=== PATIENT | female | born 1980 | race Caucasian/White ===

== ENCOUNTER → 2020-06-15 14:11 | Outpatient (CLI) | payer OTHER, SELFPAY ==
--- NOTE | ~2020-06-15 | US_ITS ---
EXAMINATION: US venous doppler LE RT DATE: 06/15/2020 14:41 INDICATION: Right calf pain. TECHNIQUE: Grayscale ultrasound images without and with compression and Doppler ultrasound images of the right lower extremity veins were obtained. COMPARISON: None. FINDINGS: The visualized portions of right common femoral vein, profunda (deep) femoral vein, femoral vein, pop liteal vein, peroneal veins, posterior tibial veins, and greater saphenous vein outflow are patent. IMPRESSION: 1. No deep venous thrombosis. Reviewed, dictated and finalized at location A. FACTURING PROJECT MANAGER
== END ==
PROVIDERS: PCP Nurse Practitioner Adult Health; Visit Provider Nurse Practitioner Adult Health
DX: M79.661 Pain in right lower leg (principal)
CPT/HCPCS: 93971

== ENCOUNTER 2024-11-22 17:21 | Emergency (ER) | payer OTHER, SELFPAY ==
--- NOTE | ~2024-11-22 | XR_ITS ---
EXAMINATION: XR chest 2V Exam Date/Time: 11/22/2024 17:34 CDT HISTORY: CP Comparison: None. RESULT: Lines, tubes, and devices: None. Lungs and pleura: Apical pleural scarring, otherwise clear. Cardiomediastinal silhouette: Stable. Other: No acute osseous or upper abdominal finding. IMPRESSION: No acute cardiopulmonary process. Reviewed, dictated and finalized at location K.
--- OUTSIDE RECORDS SUMMARY | 2024-11-22 17:23 | XMS_ITS | Data Portability ---
Author Organization [facility] [place] Address [address] [place] [address] Assessment Encounter Date Assessment Date Assessment LastModified by Organization Details LastModified Time 08/19/2024 08/19/2024 Annual gynecological exam performed. Patient will come back in a year unless there are new symptoms. [email or web address] Not available 08/19/2024 13:57:49 Plan of Treatment Reminders Order Date Submit Date Provider Last Modified By Organization Details Last Modified Time Details Appointments None recorded. Lab hormone panel, serum or plasma [address] [facility], [address], [place], [address], 5 07:36:57 pap, IG + HR HPV - HPV regardless but if HPV is positive need subtyping 16,18/45 2024 025 [facility] (Lab), [address], [place], [address], 5 17:00:17 Referral None recorded. Procedures None recorded. Surgeries None recorded. Imaging None recorded. Medication Orders doxycycline monohydrate 100 mg capsule 2024 025 [id number], [address], [place], [place], [id number], 17:28:37 Patient TargetsNo targets recorded. Patient InstructionsNo instructions recorded. Reason for Referral None Reported. Results Created Date Observation Date Name Description Value Unit Range Abnormal Flag Note LastModifiedBy Organization Detail LastModifiedTime 08/20/19 25 08/19/2024 IMAGE GUIDE D PAP AND HPV REGAR DLESS image guided Pap, HPV regardless of Pap result SEE RESULT S BELOW CASE REPOR T: Cytol ogy Gynec ologi adriel Repor t Case: [id number] Aut[employer] ruddy muniz Provi rivera: Dermo dy, Katiana , ANP, SUPERVISOR [employer]IN[employer] FABRICATION Colle cted: 08/19 1403 Order ing Locat ion: [place] Patho logy Recei tuan: 08/20 0853 First Scree n: Rosio Latif ret, CT Rescr een: James Melo, CT Speci men: Ene correa Pap - Image d, Cervi x STATE MENT OF ADEQU ACY: Satis facto ry for evalu ation Trans forma tion zone compo nent prese nt ----- ----- ----- ----- ----- ----- ----- ----- ----- ----- ----- ----- ----- ----- ----- ----- ----- ---- FINAL DIAGN OSIS: Negat lola for Intra epith elial Delmy way or Jennifer chandler ([facility]) . Elect alfreda mccullough farzana d by James Melo, CT on 2024 at 1556 CDT ----- ----- ----- ----- ----- ----- ----- ----- ----- ----- ----- ----- ----- ----- ----- ----- ----- ---- HPV RESUL TS: HPV mRNA E6/E7 : No HPV mRNA Detec inocente NOTE: This high risk HPV mRNA assay detec ts fourt een high- risk HPV types (16, 18, 31, 33, 35, 39, 45, 51, 52, 56, 58, 59, 66, 68) witho ut diffe renti ation . COMME NT: This speci men was revie wed by a Cytot echno logis t and/o r Patho logis t (as indic ated in this repor t) after evalu ation using the Thinp rep Imagi ng Syste m. CLINI ADRIEL INFOR MATIO N: Menst rual Statu s: LMP (if appli cable ): Clini adriel Histo ry/Pr eviou s Pap: Type of Neopl caridad (if appli cable ): Signi fican t Clini adriel Findi ngs: Other Histo ry: Hormo husam (if appli cable ): PAP EDUCA RACHEL L NOTE: The Pap Test is a scree madeline test with an inher ent false negat lola rate. Liqui d-bas ed sampl ing may decre ase, but will not elimi queenie, false negat lola resul ts. A negat lola resul t does not precl ude the prese nce and/o r devel opmen t of disea se, since the prese nce of abnor mal cells in the sampl e depen ds on the locat ion of the lesio n and sampl ing techn ique. Caty nued regul ar scree madeline is the best metho d of cance r preve ntion . If repor inocente cytol ogic findi ng do not corre late with physi adriel and/o r histo rical findi ngs, furth er inves tigat ion is recom demarco d, as clini vashti mosley nted. Not Available [facility] (Lab) [address], [place], [address], 08/23/2024 17:00:17 10/07/19 25 10/06/2024 FSH, LH, ESTRA DIOL estradiol 108.0 pg/mL This assay was perfo rmed using [employer] ratio n reage nts and test kits. Value s obtai cassidy with other assay metho ds or kits canno t be used inter mobley eably . Femal e Estra diol Range s: Folli cular phase 12.4- 233 pg/mL Ovula tion phase 41.0- 398 pg/mL Lutea l phase 22.3- 341 pg/mL Postm enopa usal <5-13 8 pg/mL Healt hy Pregn ant Women 1st Trime ster 154-3 243 pg/mL 2nd Trime ster 1561- 43825 pg/mL 3rd Trime ster 8525- >3000 0 pg/mL Not Available [facility] (Lab) [address], [place], [address], 10/07/2024 07:36:57 10/07/19 25 10/06/2024 FSH, LH, ESTRA DIOL FSH 4.8 mIU/m L This assay was perfo rmed using [employer] n reage nts and test kits. Value s obtai cassidy with other assay metho ds or kits canno t be used inter mobley eably . Femal es Folli cular : 3.5-1 2.5 mIU/m L Ovula tion: 4.7-2 1.5 mIU/m L Lutea l: 1.7-7 .7 mIU/m L Postm enopa use: 25.8- 134.8 mIU/m L Not Available [facility] (Lab) [address], [place], [address], 10/07/2024 07:36:57 10/07/1910/06/2024 FSH, LH, ESTRA DIOL LH 11.5 mIU/m L This assay was perfo rmed using [employer] n reage nts and test kits. Value s obtai cassidy with other assay metho ds or kits canno t be used inter mobley eably . Femal es Mid-F ollic ular: 2.4-1 2.6 mIU/m L Mid-C ycle: 14.0- 95.6 mIU/m L Mid-L uteal : 1.0-1 1.4 mIU/m L Postm enopa use: 7.7-5 8.5 mIU/m L Not Available [facility] (Lab) [address] [place], [address], 10/07/2024 07:36:57 10/07/1910/06/2024 [facility], CHAYO bacterial vaginosis (bv), tma Negati ve negati ve This test detec ts ribos omal RNA from bacte china assoc iated with bacte rial vagin osis (BV), inclu ding Lacto bacil tomer (L. gasse ri, L. crisp atus and L. jense ishaan), Gardn erell a vagin miriam, and Atopo bium vagin ae by Trans cript ion-M ediat ed Ampli ficat ion (TMA) . A singl e quali tativ e resul t is repor inocente based on instr ument softw are to deter mine BV posit lola or negat lola statu s. Not Available [facility] (Lab) [address] [place], [address], 10/07/2024 11:52:40 10/07/19 25 10/06/2024 [facility], CHAYO chino species, tma Negati ve negati ve Not Available [facility] (Lab) [address] [place], [address], 10/07/2024 11:52:40 10/07/19 25 10/06/2024 [facility], CHAYO chino glabrata, tma Positi ve negati ve abnormal Not Available [facility] (Lab) [address] [place], [address], 10/07/2024 11:52:40 10/07/19 25 10/06/2024 [facility], CHAYO trichomonas vaginalis, tma Negati ve negati ve This assay tests for and diffe renti ates betwe en Janel da glabr dejon, the Janel da speci es group (C. albic ans, C. tropi calis , C. parap emerita is, C. dubli abraham is), and Trich omona s vagin miriam by Trans cript ion-M ediat ed Ampli ficat ion (TMA) . Not Available [facility] (Lab) [address] [place], [address], 10/07/2024 11:52:40 Result Notes None recorded. Problems Name Problem SNOMED Code Status Onset Date Resolution Date Notes Provider Name and Address Organization Details Recorded Time Female genitalia finding [id number] Active 025 [facility] 17:38:15 Problem Notes None recorded. Procedures Surgical History Date Name Laterality Status Provider Name and Address Organization Details Recorded Time 5 Date of Last Pap Smear completed DARRELLMICHAEL Coulter [facility] 10/06/2024 09:41:12 5 Date of Last Mammogram completed [facility] 08/19/2024 13:58:09 5 completed [facility] 08/19/2024 13:58:09 5 Date of Last Colonoscopy completed [facility] 08/19/2024 13:58:09 5 Colonoscopy completed [facility] 08/19/2024 13:58:10 LEEP completed [facility] 08/19/2024 14:07:53 Imaging Results None recorded. Procedure Notes None recorded. Medical Equipment None Reported. Allergies Allergen ID Allergen Name Allergen Category Reaction Reaction Severity Criticality Documentation Date Start Date Code Code System Note Provider Name and Address Organization Details Recorded Time 25234 Substance with sulfonami de structure and antibacte rial mechanism of action (substanc e) medicatio n rash Not available Not available 08/19/2024 70998 8003 SNOMED [facility] 13:58:09 98906 Ambien medicatio n Not available Not available Not available 08/19/2024 17510 5 RxNorm [facility] 13:58:09 Medications Name Sig Start Date Stop Date Status Note LastModified by Organization Details LastModified Time doxycycline monohydrate 100 mg capsule TAKE 1 CAPSULE BY MOUTH TWICE DAILY FOR 7 DAYS active Not Available Not Available No t Available Eye Drops (tetrahydro zoline) 0.05 % active Not Available Not Available Not Available Fish Oil (with DHA-EPA) capsule 10/06 completed Not Available Not Available Not Available Garlic and Parsley Oil capsule 10/06 completed Not Available Not Available Not Available ciprofloxac in 0.3 %-dexametha sone 0.1 % ear drops,suspe nsion SHAKE LIQUID AND INSTILL 4 DROPS TO LEFT EAR TWICE DAILY FOR 7 DAYS 10/06 completed Not Available Not Available Not Available Zyrtec active Not Available Not Availa ble Not Available D3-50 10/06 completed Not Available Not Available Not Available GaviLyte-G 236 gram-22.74 gram-6.74 gram-5.86 gram oral solution TAKE DIRECTED 08/19 completed Not Available Not Available Not Available Vitals Date Recorded Body height Body mass index (BMI) Body weight Systolic And Diastolic Provider Name and Address Organization Details Last Updated DateTime 08/19/2024 167.64 cm 27.3 kg/m2 56365.83 g 142/92 mm[Hg] Taylor Alicia [facility] 08/19/2024 14:02:41 Date Recorded Body height Body mass index (BMI) Body weight Systolic And Diastolic Provider Name and Address Organization Details Last Updated DateTime 10/06/2024 167.64 cm 27.4 kg/m2 43875.7 g 130/84 mm[Hg] DARRELL Coulter [facility] 10/06/2024 17:02:04 Social History Question Answer Notes LastModified by Organizat ion Details LastModified Time Do You Have An Advance Directive? No [email or web address] Information n ot available 08/19/2024 How Many Years Have You Consumed Alcohol? 21 Information not available 08/19/2024 Are You Blind Or Do You Have Difficulty Seeing? No [email or web address] Information n ot available 08/19/2024 What Is Your Level Of Caffeine Consumption? Moderate [email or web address] Information not available 08/19/2024 How Much Tobacco Do You Chew? None [email or web address] Information not available 08/19/2024 In The 14 Days Before Symptom Onset, Have You Had Close Contact With A Laboratory-confirm ed COVID-19 While That Case Was Ill? No [email or web address] Information n ot available 08/19/2024 In The 14 Days Before Symptom Onset, Have You Had Close Contact With A Person Who Is Under Investigation For COVID-19 While That Person Was Ill? No [email or web address] Information not available 08/19/2024 Have You Been To An Area Known To Be High Risk For COVID-19? No Information not available 08/19/2024 Are You Deaf Or Do You Have Serious Difficulty Hearing? No [email or web address] Information not available 08/19/2024 What Type Of Diet Are You Following? GLUTENFREE [email or web address] Information n ot available 08/19/2024 What Is The Highest Grade Or Level Of School You Have Completed Or The Highest Degree You Have Received? [id number] [email or web address] Information not available 08/19/2024 Are There Any Guns Present In Your Home? No Information not available 08/19/2024 Do You Use Protection During Sex? No [email or web address] Information not available 08/19/2024 Do You Use Your Seat Belt Or Car Seat Routinely? Yes [email or web address] Information not available 08/19/2024 Are You Sexually Active? Yes [email or web address] Information not available 08/19/2024 Do You Have Smoke And Carbon Monoxide Detectors In Your Home? Yes [email or web address] Information not available 08/19/2024 How Much Tobacco Do You Smoke? No [email or web address] Information not available 08/19/2024 Do You Use Sunscreen Routinely? Yes [email or web address] Information not available 08/19/2024 Have You Used IV Drugs? No [email or web address] Information not available 08/19/2024 Do You Have Difficulty Walking Or Climbing Stairs? No [email or web address] Information not available 08/19/2024 Sex: Unknown Functional Status Question Answer Note LastModified by Organizat ion Details LastModified Time Do you use any illicit or recreational drugs? No [email or web address] Information not available 08/19/2024 What is your level of alcohol consumption? Occasional [email or web address] Information not available 08/19/2024 Are you currently employed? Yes [email or web address] Information not available 08/19/2024 Are you able to walk? YESWOREST [email or web address] Information not available 08/19/2024 Are you able to care for yourself? Yes [email or web address] Information n ot available 08/19/2024 What is your occupation? Homemaker [email or web address] Information not available 08/19/2024 Do you have difficulty dressing or bathing? No [email or web address] Information not available 08/19/2024 What is your exercise level? Heavy [email or web address] Information not available 08/19/2024 Mental Status Question Answer Note LastModified by Organization D etails LastModified Time Do you feel stressed (tense, restless, nervous, or anxious, or unable to sleep at night)? [id number] Information not available 08/19/2024 Family History Relationship Description Onset Age of this Age Resolved Age Notes LastModified by Organization Details LastModified Time Maternal Grandmother Malignant tumor of colon [email or web address] Not available 2024 13:58:09 Mother Malignant melanoma [email or web address] Not available 2024 14:07:17 Maternal Uncle Malignant melanoma [email or web address] Not available 2024 14:07:17 Medical History Condition Response Allergies (Food, seasonal, environmental ) Y Gestational Diabetes Y History of abnormal pap Y Polycystic ovary syndrome Y Infertility Y Gynecological History Statement/Question Response Abnormal Pap Y Date of Last Mammogram 07/01/2024 Flow Light Date of LMP 09/19/2024 On BCP's at Conception? N Was last menstrual period normal Y STIs/STDs N Duration of Flow (days) 5 Current Control Method Withdrawal Age at First Child 32 Date of Last Colonoscopy 06/09/2024 Sexually Active? Y Menses Monthly Y Age of first menstrual cycle 13 Date of Last Pap Smear 08/19/2024 Sexual Problems? Y LMP Definite 06/09/2024 Obstetrics History GPAL:G 3 P 2 0 1 0 Type Value Full Term 2 Spontaneous 1 Total 3 Past Encounters Encounter ID Performer Location Encounter Start Date Encounter Closed Date Diagnosis/Indication Diagnosis SNOMED-CT Code Diagnosis ICD10 Code Diagnosis Note [id number] Reggie Brown MD [place] [address] [address] 08/19/2024 13:40:02 08/19/2024 14:48:37 Gynecologic examination 07476154 Z01.419 Annual gynecologi adriel exam performed. Patient will come back in a year unless there are new symptoms. Suggest Calcium with Vitamin D if not eating in diet. Patient advised to get annual flu shot. Recommend yearly physicals and perform monthly breast exams. Genetic testing is available for patients with family history of cancer. Engage in safe sexual practices, use condoms. Encouraged to have daily exercise. Avoid tobacco and illicit drugs, moderation of alcohol. If BMI greater than 25 dietary consult advised. If you have any questions please call or email. mammogram- UTD PCP orders colon cancer screening - UTD PCP orders DEXA scan- n/a Pap smear- pap w/ HPV collected laboratory evaluation - n/a STI testing - declined [id number] Reggie Brown MD [place] [address] [address] 10/06/2024 16:52:20 10/07/2024 05:29:37 Vaginal discharge 454903015 N89.8 Will r/o yeast/bv/t rich with vaginitis panel due to persistent discharge and odor. Mid-cycle bleeding 70890 0006 N92.0 Patient requests hormone labs today due to recent irregular bleeding.D iscussed that this is likely due to the retained tampon.Rec ommended that patient continue to monitor bleeding and patient will follow-up if bleeding irregulari ty persists. Tampon in vagina 1507380 04 T19.2XXA W44.8XXA Discussed that retained tampon was noted and removed today.Rx for doxycyclin e 100 mg BID x 7 days sent for infection prophylaxi s. Patient is to contact office or go to nearest ED/Urgent care if fever >/= 100.1, pain, excessive bleeding, unusual drainage or swelling in area of concern; or experienci ng worsening sx's or new onset of concerning sx's. Understand ing verbalized . All questions answered to patient satisfacti on. Health Concerns Section Related Observation LastModified by Organization Detai ls LastModified Time None Recorded Concern Status LastModified by Organization Details LastModified Time None Recorded Advance Directives Directive N: Payers Insurance Date Sequence Insurance Name Policy Number Policy Watson Covered Member ID Watson Member ID Guarantor Name 10/03/2024 1 REINIER [id number] Ed Fry [id number] 2 Rosalina Fry Notes Date Note Type Note Provider Name and Address Organization Details Recorded Time 08/19/2024 text/html Annual GYNReport ed bypatient.History:n o gynecologic complaints Menstrual cycle:Normal menses Urinary symptoms:No hematuria; No incontinence Vulva:No genital lesion Vagina:Normal vaginal discharge Breast:No breast pain; No breast lump; No nipple discharge Current Contraception:Satis fied with current contraception Sexual complaints:No sexual complaints; No pain during intercourse; Normal libido Menopausal Symptoms:No menopausal symptoms; Normal vaginal lubrication Psychological symptoms:No depression; No anxiety; No PMDD Preventive measures:Encourage self breast examination; Encourage regular exercise; Encourage no tobacco use; Encourage regular mammograms starting age 40 New patient presents to establish care. Taylor dyson, [facility] 08/19/2024 14:51:15 10/06/2024 text/html 44 y/o female presents with c/o intermittent brown spotting and discharge and vaginal odor x 10 days.Patient states that she had a normal period on 09/19/24 that lasted 3 days, then she went to [place] on vacation for 4 days and started spotting on 09/26/24 until now. Neg pain of abd/pelvis/flankNeg urinary sx'sNeg GI sx'sNeg N/V/F/C/DNeg Vag irritation, itching KATIANA LOTT NP [address], [place], [address], [facility] 10/06/2024 17:34:42 OBGyn Episode Ob Episode Information Episode Created Date Number of Fetuses Patient Bloodtype Patient rh Status Prepregnancy Weight lbs Domestic Partner Domestic Partner Phone Father Name Packaging Technician Status 08/20/19 25 1 CLOSED Fetus Data First Name Last Name Admitted to NICU Weight (g) Sex Living Outcome Pediatric Complications Fetus ID Race Codes Race Delivery Type , Spontane ous [id number] Arnulfo Calculation Initial Arnulfo Date Initial Exam Date Initial Exam Provider Initial Ultrasound Date Last Menstrual Period Date Ultra Sound Weeks Gestation 0 Eighteen To Twenty Week Arnulfo Update Ultra Sound Date Fundal Height At Umbil Quickening Date Ultra Sound Latest Weeks Gestation Final Arnulfo Confirmed By Final Arnulfo Confirmed Date Final Arnulfo Date Ultra Sound Latest Days Gestation 0 0 Menstrual History Last Menstrual Date Menses Monthly On Bcp Conception Prior Menses Frequency Hcg Plus Date Menarche Onset Age Delivery Information Delivery Date Delivery Type Labor Anesthesia Weeks Gestation Incision Type Labor Labor Length Hrs Delivered By Post Complications Tubal Sterilization Discharge Date Comments 2 misscarr i age Discharge Information Feeding Method Contraceptive Method Maternal HG B and HCT Levels Ob Episode Information Episode Created Date Number of Fetuses Patient Bloodtype Patient rh Status Prepregnancy Weight lbs Domestic Partner Domestic Partner Phone Father Name Packaging Technician Status 08/20/19 25 1 CLOSED Fetus Data First Name Last Name Admitted to NICU Weight (g) Sex Living Outcome Pediatric Complications Fetus ID Race Codes Race Delivery Type 2494.75 6 M Full Term [id number] Vaginal Delivery Arnulfo Calculation Initial Arnulfo Date Initial Exam Date Initial Exam Provider Initial Ultrasound Date Last Menstrual Period Date Ultra Sound Weeks Gestation 0 Eighteen To Twenty Week Arnulfo Update Ultra Sound Date Fundal Height At Umbil Quickening Date Ultra Sound Latest Weeks Gestation Final Arnulfo Confirmed By Final Arnulfo Confirmed Date Final Arnulfo Date Ultra Sound Latest Days Gestation 0 0 Menstrual History Last Menstrual Date Menses Monthly On Bcp Conception Prior Menses Frequency Hcg Plus Date Menarche Onset Age Delivery Information Delivery Date Delivery Type Labor Anesthesia Weeks Gestation Incision Type Labor Labor Length Hrs Delivered By Post Complications Tubal Sterilization Discharge Date Comments 3 38 Discharge Information Feeding Method Contraceptive Method Maternal HG B and HCT Levels Ob Episode Information Episode Created Date Number of Fetuses Patient Bloodtype Patient rh Status Prepregnancy Weight lbs Domestic Partner Domestic Partner Phone Father Name Packaging Technician Status 08/20/19 25 1 CLOSED Fetus Data First Name Last Name Admitted to NICU Weight (g) Sex Living Outcome Pediatric Complications Fetus ID Race Codes Race Delivery Type 2834.95 F Full Term [id number] Vaginal Delivery Arnulfo Calculation Initial Arnulfo Date Initial Exam Date Initial Exam Provider Initial Ultrasound Date Last Menstrual Period Date Ultra Sound Weeks Gestation 0 Eighteen To Twenty Week Arnulfo Update Ultra Sound Date Fundal Height At Umbil Quickening Date Ultra Sound Latest Weeks Gestation Final Arnulfo Confirmed By Final Arnulfo Confirmed Date Final Arnulfo Date Ultra Sound Latest Days Gestation 0 0 Menstrual History Last Menstrual Date Menses Monthly On Bcp Conception Prior Menses Frequency Hcg Plus Date Menarche Onset Age Delivery Information Delivery Date Delivery Type Labor Anesthesia Weeks Gestation Incision Type Labor Labor Length Hrs Delivered By Post Complications Tubal Sterilization Discharge Date Comments 4 38 Discharge Information Feeding Method Contraceptive Method Maternal HG B and HCT Levels
--- OUTSIDE RECORDS SUMMARY | 2024-11-22 17:23 | XMS_ITS | Clinical Summary ---
Author Organization [facility] y Address [address] [place] [address] Care Team Providers Care Brand Designer Name Role Phone Unavailable Primary Care Provider Unavailabl e Allergies Active Allergy Reactions Criticality Noted Date Comments Miconazole-Skin Clnsr17 Itching Low 10/06/2013 Sulfa (Sulfonamide Antibiotics) Rash Low 01/05/2013 Zolpidem Other (See Comments) 11/04/2013 Temporary memory changes, unusual behavior, feeling loopy Medications VIT #91/FE FUM/FA/DHA ( + DHA ORAL) Take by mouth. Active Active Problems Problem Noted Date Diagnosed Date GDM, class A1 02/08/2014 PCOS (polycystic ovarian syndrome) 01/11/2013 Resolved Problems Problem Noted Date Diagnosed Date Resolved Date 03/1503/15/2014 04/25/2014 SGA (small for gestational age) 01/24/2014 04/25/2014 Overview (01/24/2014): US on 01/24/14 shows AC and HC <2.5th percentile, normal fluid, overall 22.5th percentile. Slightly elevated umb artery dopplers, nl MCA. Supervision of other normal 07/28/2013 04/25/2014 Overview (08/06/2013): DONNA: 03/24/14 by 7w1d US (unsure LMP, lactating) O+/I/-/-, HIV neg CF testing: negative with 1st 1st trimester screen: ordered Hx of preeclampsia, prior pr egnancy, currently 07/28/2013 04/25/2014 H/O LEEP (loop electrosurgic al excision procedure) of cervix complicating 07/28/2013 04/25/2014 Overview (07/28/2013): Will check CL History of gestational diabetes 01/11/2013 04/25/2014 Overview (07/28/2013): A2GDM with prior . Was on Metformin Immunizations Immunization Administration Dates Next Due (ADACEL/BOOSTRIX)(10 YR UP) TDAP VACCINE, 0.5ML, IM 01/13/2014 Influenza Vaccine Split 3+ Yrs IM 02/24/2014 Family History Medical History Relation Name Comments Heart Disease Father CAGB x 3, pace r Hypertension Father Other Father prediabetic Heart Disease Maternal Grandfather Colon Cancer Maternal Grandmother Arrhythmia Mother atrial fibrilla tion Hypertension Mother Cancer Paternal Grandfather prostat e Heart Disease Paternal Grandfather Depression Paternal Grandmother Heart Disease Paternal Grandmother High Cholesterol Paternal Grandmother Other Paternal Uncle brain aneurys m Relation Name Status Comments Brother 1 Alive Brother 2 Alive Father Alive Maternal Grandfather Maternal Grandmother Mother Alive Paternal Grandfather Paternal Grandmother Paternal Uncle Sister Alive Social History Tobacco Use Types Packs/Day Years Used Date Smoking Tobacco: Never Smokeless Tobacco: Never Tobacco Cessation:Counseling Given: No Alcohol Use Standard Drinks/Week Comments Yes 0 (1 standard drink = 0.6 oz pur e alcohol) Feeling Safe Answer Date Recorded Are you in a relationship wi th someone who hurts you emotionally and/or physically? No 06/29/2023 Comments No Sex and Gender Information Value Date Recorded Sex Assigned at Not on file Legal Sex Female 10:39 AM CDT Gender Identity Not on file Sexual Orientation Not on file Occupation Industry Job Start Date Job End Date Not on file Not on file Not on file Not on file Last Filed Vital Signs Vital Sign Reading Time Taken Comments Blood Pressure 110/68 06/29/2023 5:00 PM SECURITIES COMPLIANCE EXAMINER Pulse 85 06/29/2023 5:00 PM SECURITIES COMPLIANCE EXAMINER Temperature 36.9 C (98.5 F) 06/29/2023 5:00 PM SECURITIES COMPLIANCE EXAMINER Respiratory Rate 16 06/29/2023 5:00 PM SECURITIES COMPLIANCE EXAMINER Oxygen Saturation 99% 06/29/2023 5:00 PM SECURITIES COMPLIANCE EXAMINER Inhaled Oxygen Concentration - - Weight 74.8 kg (165 lb) 06/29/2023 3:16 PM SECURITIES COMPLIANCE EXAMINER Height 167.6 cm (5' 6) 06/09/2014 9:40 AM SECURITIES COMPLIANCE EXAMINER Body Mass Index 26.63 06/09/2014 9:40 AM SECURITIES COMPLIANCE EXAMINER Plan of Treatment Health Maintenance Due Date Last Done Comments HEPATITIS B VACCINES (1 of 3 - 19+ 3-dose series) 2001 HPV/Cotest (21-29) 2003 HPV/Cotest (30-65) 2012 CERVICAL CANCER SCREENING 07/11/2015 PAP SMEAR 07/11/2015 07/10/2012 (Previously completed) BREAST CANCER SCREENING 2022 DTAP/TDAP/TD VACCINES (2 - Td or Tdap) 01/14/2024 01/13/2014 INFLUENZA VACCINE (#1) 2024 02/24/2014 HPV VACCINES Aged Out No longer eligi ble based on patient's age to complete this topic Insurance [facility] OPEN ACCESS HMO Advance Directives For more information, please contact: [phone] * Full Code (Latest Code Status on File) Date Activated Date Inactivated Comments 03/15/2014 7:16 AM 03/17/2014 12:44 PM
--- OUTSIDE RECORDS SUMMARY | 2024-11-22 17:23 | XMS_ITS | Referral Summary ---
Author Organization [address] Address [address] [place] [address] Care Team Providers Care Training And Development Professional Name Role Phone Brea Lechuga NP Primary Care Provider [phone] Encounters Date Type Department Care Team Description 11/22/2024 Nurse Triage [facility] Primary Care at [address] [address] Brea Lechuga NP 09/03/2024 8:45 AM CDT Office Visit [facility] at [address] [address] Alice Ramirez PA Perforation of left tympanic membrane (Primary Dx) from Last 3 Months Allergies Active Allergy Reactions Criticality Noted Date Comments Miconazole-Skin Clnsr17 Itching Low 10/06/2013 Sulfa (Sulfonamide Antibiotics) Rash Medium 01/05/2013 Zolpidem Other (See comments) Low 11/04/2013 Temporary memory changes, unusual behavior, feeling loopy Medications meloxicam (MOBIC) 15 mg tablet Take 1 tablet (15 mg total) by mouth daily for 14 days 7 tablet 1 3 Active Additional Information Patient not taking.Reported on 03/01/2024 acidophilus-pec tin, citrus 100 million cell-10 mg capsule Take by mouth Activ e parsley/garlic (garlic-parsley ) tablet Take by mouth Active oregano oiL 1,500 mg capsule Take by mouth Active valACYclovir (VALTREX) 1 gram tablet Take 2 tabs (2000 mg) 2 times a days for 1 day. 4 tablet 5 Active Active Problems Problem Noted Date Diagnosed Date Screening for colon cancer 04/21/2024 Family history of colon cancer 04/21/2024 GDM, class A1 02/08/2014 PCOS (polycystic ovarian syndrome) 01/11/2013 Immunizations Immunization Administration Dates Next Due DTaP, Unspecified 06/24/1986, 5,1982,1982,0 1982 Hep B, Unspecified 12/17/1994,08/30/1994, 995 HiB 06/07/1983 IPV 06/24/1986, 5,1982,1982,0 1982 Influenza, Trivalent, IM (MDV) 02/24/2014 Influenza, Unspecified 05/12/2023(Deferr ed: Patient Refused),05/12/2022(Deferred: Patient Refused) MMR 03/23/1984,1982 Tdap 01/04/2021,01/13/2014,05/03/1997 Social History Tobacco Use Types Packs/Day Years Used Date Smoking Tobacco: Never AUDIT-C Answer Date Recorded Q1: How often do you have a drink containing alc ohol? Monthly or less 06/09/2024 Q2: How many drinks containi ng alcohol do you have on a typical day when you are drinking? 1 or 2 06/09/2024 Q3: How often do you have si x or more drinks on one occasion? Never 06/09/2024 PHQ-2 Answer Date Recorded PHQ-2 Total Score (If total score is 3 or more points, staff should administer the PHQ-9) 0 03/10/2024 Personal Safety Answer Date Recorded Have you ever been in or are you currently in a harmful physical or emotional relationship or is someone making you feel afraid or unsafe? Denies 06/09/2024 Comments No Sex and Gender Information Value Date Recorded Sex Assigned at Not on file Legal Sex Female 11:29 AM CDT Gender Identity Not on file Sexual Orientation Not on file Last Filed Vital Signs Vital Sign Reading Time Taken Comments Blood Pressure 123/85 09/03/2024 8:38 AM CDT Pulse 72 09/03/2024 8:38 AM CDT Temperature 36.9 C (98.4 F) 09/03/2024 8:38 AM CDT Respiratory Rate 20 09/03/2024 8:38 AM CDT Oxygen Saturation 100% 09/03/2024 8:38 AM CDT Inhaled Oxygen Concentration - - Weight 74.8 kg (165 lb) 09/03/2024 8:38 AM CDT Height 167.6 cm (5' 6) 09/03/2024 8:38 AM CDT Body Mass Index 26.63 09/03/2024 8:38 AM CDT Plan of Treatment Not on file Procedures Procedure Name Priority Date/Time Associated Diagnosis Comments SCREENING MAMMOGRAM BILATERAL W SINGH Schedule Routine, Read Routine (OP Routine) 07/01/2024 1:05 PM ELECTRONIC SEMICONDUCTOR PROCESSOR Breast cancer screening by mammogram HEPATITIS C ANTIBODY Routine 03/10/2024 9:58 AM CDT Encounter for hepatitis C screening test for low risk patient from Last 3 Months or Most Recently Relevant to Health Maintenance Results * SCREENING MAMMOGRAM BILATERAL W SINGH (07/01/2024 1:05 PM ELECTRONIC SEMICONDUCTOR PROCESSOR) Anatomical Region Laterality Modality Breast Bilateral Mammography Impressions 07/01/2024 1:13 PM ELECTRONIC SEMICONDUCTOR PROCESSOR BI-RADS ATLAS category (overall): 1 - Negative There is no mammographic evidence of malignancy. A 1 year screening mammogram is recommended. The patient has been or will be contacted. We recommend annual screening mammography for women at average risk of breast cancer beginning at age 40, based on guidelines of the [place] [employer] (ACR Practice Parameter for the Performance of Screening and Diagnostic Mammography) and [place] [employer]. For women with and elevated risk of breast cancer, please refer to the ACR Practice Parameter for specific screening recommendations. The patient will be entered into a reminder system with a target due date of 1 year for her next screening exam. Narrative 07/01/2024 1:13 PM ELECTRONIC SEMICONDUCTOR PROCESSOR SCREENING MAMMOGRAM BILATERAL W SINGH: 07/01/24 The study was acquired using full field digital technology and interpreted from soft copy. 2D digital mammographic views, as well as 3D digital tomosynthesis were performed in the CC and MLO projections. This study was resulted using Computer-Aided Detection (CAD). CLINICAL: Breast cancer screening by mammogram. No relevant medical history has been documented for this patient. No known family history of breast cancer. COMPARISON: Baseline Screening Mammography. No prior mammography is available for comparison. BREAST TISSUE: The breasts are heterogeneously dense, which may obscure small masses. FINDINGS: No suspicious masses, suspicious calcifications, or other suspicious findings are seen within either breast. us Brea Lechuga NP IMG MAMMO PROCEDURES Final Resul t * Hepatitis C antibody Blood (03/10/2024 9:58 AM CDT) Hep C Ab Nonreactive Nonreactive Comment: Interpretive Data Nonreactive: Antibodies to HCV not detected. Does NOT exclude the possibility of recent exposure to HCV. Equivocal: Equivocal for HCV antibodies. Supplemental molecular testing will be automatically performed to determine infection status in accordance with current CDC screening recommendations. Reactive: Positive for HCV antibodies. This may represent current or past HCV infection. Supplemental molecular testing will be automatically performed to determine current infection status in accordance with current CDC screening recommendations. Interpretive data was last revised on 2019. Blood 03/10/2024 9:58 AM CDT 03/10/2024 6:01 PM CDT us Brea Lechuga NP LAB MICROBIOLOGY - GENERAL ORDER DAVID Final Result Performing Organization Address City/State/ZIP Co la Phone Number [facility] [address] [facility] Department [place] [address] from Last 3 Months or Most Recently Relevant to Health Maintenance Insurance CIGNA CIGNA CIGNA Care Teams Training And Development Professional Relationship Specialty Start Date End Date Brea Lechuga NP [address] [place] [address] PCP - General Family Medicine 03/10/24
--- OUTSIDE RECORDS SUMMARY | 2024-11-22 17:23 | XMS_ITS | Clinical Summary ---
Author Organization [facility] [address] Address [address] [place] [address] Care Team Providers Care Floor Covering Installer Name Role Phone Brea Lechuga AUTOMOTIVE HEAVY MECHANIC Primary Care Provider [phone] Allergies Active Allergy Reactions Criticality Noted Date [...] days for 1 day. 4 tablet 5 4 Active Active Problems Problem Noted Date Diagnosed Date Screening for colon cancer 04/21/2024 Family history of colon cancer 04/21/2024 GDM, class A1 02/08/2014 PCOS (polycystic ovarian syndrome) 01/11/2013 Encounters Date Type Department Care Team Description 11/22/2024 Nurse Triage [facility] Primary Care at [address] [address] Brea Lechuga NP 09/03/2024 8:45 AM CDT Office Visit [facility] at [address] [phone] Alice Ramirez PA Perforation of left tympanic membrane (Primary Dx) from Last 3 Months Immunizations Immunization Administration Dates Next Due DTaP, Unspecified 06/24/1986, 5,1982,1982,0 1982 Hep B, Unspecified 12/17/1994,08/30/1994, 995 HiB 06/07/1983 IPV 06/24/1986, 5,1982,1982,0 1982 Influenza, Trivalent, IM (MDV) 02/24/2014 Influenza, Unspecified 05/12/2023(Deferr ed: Patient Refused),05/12/2022(Deferred: Patient Refused) MMR 03/23/1984,1982 Tdap 01/04/2021,01/13/2014,05/03/1997 Surgical History Surgery Date Site/Laterality Comments TYMPANOSTOMY TUBE PLACEMENT THYROID CYST EXCISION CERVICAL BIOPSY W/ LOOP ELECTRODE EXCISION Medical History Medical History Date Comments Migraines Gestational diabetes PCOS (polycystic ovarian syndrome) Hx of cold sores Family History Medical History Relation Name Comments Colon polyps Brother Lymphoma Brother Hypertension Father Colon cancer Maternal Grandmother Colon polyps Mother Prostate cancer Paternal Grandfather Relation Name Status Comments Brother Father Maternal Grandmother Mother Other Paternal Grandfather Social History Tobacco Use Types Packs/Day Years [...] on file Sexual Orientation Not on file Obstetrics History Para Term AB IAB SAB Ectopic Multiple Livin g Live Births 3 2 2 Date Outcome GA Total Labor Labor/2nd/3rd Weight Sex Type Anes PTL Angelika A1 A5 Name Clin Term Term Last Filed Vital Signs Vital Sign Reading [...] 09/03/2024 8:38 AM CDT Plan of Treatment Health Maintenance Due Date Last Done Comments Cervical Cancer Screening 1982 Varicella Vaccines (1 of 2 - 13+ 2-dose series) 1995 Covid-19 Vaccine ( - 2023- season) 2024 09/27/2020, 09/06/2020 Influenza Vaccine (#1) 2025 02/24/2014 Depression Screening 03/10/2025 03/10/2024 Regular Well Visit/Exam 18-64 03/10/2025 03/10/2024 Breast Cancer Screening-Mammogram 07/01/2025 07/01/2024 DTaP/Tdap/Td Vaccine (9 - Td or Tdap) 01/04/2031 01/04/2021, 01/13/2014, 05/03/1997, Additional history exists Hepatitis B Screening Completed 12/17/1994 , 08/30/1994, 06/24/1994 Hepatitis C Screening Completed 03/10/2024 HPV Vaccines Aged Out No longer eligi ble based on patient's age to complete this topic Pneumococcal vaccine <65 Aged Out No longer eligible based on patient's age to complete this topic Procedures Procedure Name Priority Date/Time Associated Diagnosis Comments SCREENING MAMMOGRAM BILATERAL W SINGH Schedule Routine, Read Routine (OP Routine) 07/01/2024 1:05 PM STUDENT DEAN Breast cancer screening by mammogram HEPATITIS C ANTIBODY Routine 03/10/2024 9:58 AM CDT Encounter for hepatitis C screening test for low risk patient from Last 3 Months or Most Recently Relevant to Health Maintenance Results * SCREENING MAMMOGRAM BILATERAL W SINGH (07/01/2024 1:05 PM STUDENT DEAN) Anatomical Region Laterality Modality Breast Bilateral Mammography Impressions 07/01/2024 1:13 PM STUDENT DEAN BI-RADS ATLAS category (overall): 1 - Negative There is no mammographic evidence of malignancy. A 1 year screening mammogram is recommended. The patient has been or will be contacted. We recommend annual screening mammography for women at average risk of breast cancer beginning at age 40, based on guidelines of the [place] [employer] (ACR Practice Parameter for the Performance of Screening and Diagnostic Mammography) and [place]. For women with and elevated risk of breast cancer, please refer to the ACR Practice Parameter for specific screening recommendations. The patient will be entered into a reminder system with a target due date of 1 year for her next screening exam. Narrative 07/01/2024 1:13 PM STUDENT DEAN SCREENING MAMMOGRAM BILATERAL W SINGH: 07/01/24 The [...] 9:58 AM CDT 03/10/2024 6:01 PM CDT Brea Lechuga NP LAB MICROBIOLOGY - GENERAL ORDER DAVID Final Result Performing Organization Address City/State/ZIP Co mi Phone Number [facility] [address] Department [place] [address] from Last 3 Months or Most Recently Relevant to Health Maintenance Insurance CIG CIG CIGNA Care Teams Floor Covering Installer Relationship Specialty Start Date End Date Brea Lechuga NP [address] [facility] [address] [place] [address] PCP - General Family Medicine 03/10/24
--- OUTSIDE RECORDS SUMMARY | 2024-11-22 17:23 | XMS_ITS | Encounter Summary ---
Author Organization [facility] Address [address] [place] [address] Care Team Providers Care Transport Tech Name Role Phone Brea Lechuga NP Primary Care Provider [phone] Reason for Visit * Reason Onset Date Comments Chest Pain 11/19/2024 Encounter Details Date Type Department Care Team (Late st Contact Info) Description 11/22/2024 Nurse Triage [facility] Primary Care at [address] [address] Brea Lechuga NP [address] [place] [address] [address] [place] [address] Social History Tobacco Use Types Packs/Day Years [...] on file Sexual Orientation Not on file documented as of this encounter Miscellaneous Notes * Telephone Encounter - Jessica Reyes MA - 11/22/2024 3:54 PM CDT Call Back Caller???s Concern: Patient had not seen the response from Charley through [employer]. She was read Charley's response verbatim and expressed understanding. Does message need to be routed? Yes-FYI Only * Telephone Encounter - Charley Ritter RN - 11/22/2024 12:08 PM CDT Reason for Conversation Chest Pain Background Pt is a 44 y/o female with a hx of PCOS calling with intermittent chest discomfort x 3 days. Pt states she has L arm pain at times. Denies SOB, nausea, indigestion and fever. Pain is not sharp/stabbing. Pt reports a tightness to chest. Pt feels sx's are making her anxious as her dad had a massive heart attack when he was younger. Pt is requesting to be seen today. No availability. Please contact pt at [phone]. Care advice given including increased fluids and dietary management. Pt verbalized understanding and will adriel with worsening sx's. Disposition See Today in Office Reason for Disposition Patient wants to be seen Protocols Used Chest [id number] * Telephone Encounter - Charley Ritter RN - 11/22/2024 12:03 PM CDT Regarding: worsening tightness in chest ----- Message from [place] R sent at 11/22/2024 11:54 AM CDT ----- Symptom Based Call Chief Complaint(s): worsening tightness in chest Duration: last night and Friday What type of symptom(s) is the patient experiencing? Red Flag. Is the patient concerned they are experiencing a medical emergency requiring an ambulance? No Additional Comments: unsure if she pulled a muscle. Has had this one or twice before Does message need to be routed? Yes-Action Needed documented in this encounter Plan of Treatment Not on file documented as of this encounter Visit Diagnoses Not on filedocumented in this encounter Care Teams Transport Tech Relationship Specialty Start Date End Date Brea Lechuga NP [address] [facility] [address] [place] [address] PCP - General Family Medicine 03/10/24 documented as of this encounter
--- NOTE | 2024-11-22 17:24 | ECG_ITS ---
Test Date: 2024-11-22 17:29:26 Measurements Intervals [place] Rate: 90 P: 72 [place]: 159 QRS: 65 QRSD: 82 T: -15 QT: 329 QTc: 404 Interpretive Statements SINUS RHYTHM NONSPECIFIC ST & T-WAVE ABNORMALITY ABNORMAL ECG No previous ECG available for comparison Electronically Signed On 11-23-2024 10:05:15 CDT by Ramiro Gonsalez M.D.
[2024-11-22 17:34] VITALS: BP 142/74; PULSE 96; RESP 18; TEMP 36.7; O2SAT 100
[2024-11-22 17:40] LABS: Hematocrit 41.7 % (37.0-47.0); Hemoglobin 13.9 g/dL (12.0-15.0); Immature Granulocyte Percent A 0.3 % (0-0.5); Lymphocytes Absolute Auto 2.07 K/mm3 (0.9-3.2); Mean Corpuscular HGB Conc 33.3 g/dl (32-36); Mean Corpuscular Hemoglobin 28.5 pg (26-34); Mean Corpuscular Volume 85.6 fl (80-100); Nucleated Red Blood Cells Absolute Auto 0.000 K/mm3 (0.0-0.012); Nucleated Red Blood Cells Perc 0.0 % (0.0-0.2); Platelet Count Result 257 k/mm3 (150-375); Red Blood Count 4.87 M/mm3 (4.2-5.4); White Blood Count 7.0 K/mm3 (4.5-10.0)
[2024-11-22 17:51] LABS: INR 1.0; Prothrombin Time 13.8 Seconds (11.1-14.7)
[2024-11-22 17:52] LABS: Partial Thromboplastin Time 28.9 Seconds (22.3-36.8)
[2024-11-22 18:01] LABS: Alanine Aminotransferase 17 U/L (6-35); Albumin Level 4.7 g/dL (3.5-5.1); Alkaline Phosphatase 60 U/L (38-126); Anion Gap 9 mmol/L (4-12); Aspartate Amino Transferase 26 U/L (14-36); Bilirubin,Total 1.2 mg/dL (0.2-1.3); Blood Urea Nitrogen 22 mg/dL (7-17); Calcium 9.1 mg/dL (8.4-10.2); Carbon Dioxide 26 mmol/L (22-30); Chloride 105 mmol/L (98-107); Estimated CRCL calculation 94 ml/min; Estimated Glomerular Filt Rate > 60; Glucose 118 mg/dL (65-110); Lipase 104 U/L (23-300); Potassium 3.6 mmol/L (3.4-5.0); Sodium 140 mmol/L (137-145); Total Protein 8.2 g/dL (6.3-8.2)
[2024-11-22 18:50] LABS: Troponin I < 0.012 ng/mL (0.000-0.034)
--- NOTE | 2024-11-22 21:15 | ED.CHESTPAIN ---
HPI - Chest Pain General Chief Complaint: Chest Pain Stated Complaint: CHEST PRESSURE Time Seen by Provider: 11/22/24 21:06 History of Present Illness HPI narrative: Pt developed tightness in her chest last night that she noticed most of night. Pt said it was still present when she woke up and has remained there all day. Pt denies SOB. Pt says she notices it primarily on left side of chest and felt something in her left arm. Pt says her father had PA in his 60's and she has anxiety about having a heart attack. Pt says she notices the tightness in different areas of her chest at different times. Related Data Allergies Allergy/AdvReac Type Severity Reaction Status Date / Time Sulfa (Sulfonamide Allergy Rash Verified 11/22/24 17:23 Antibiotics) Review of Systems Review of Systems: All systems reviewed & are unremarkable except as noted in HPI and below Exam Const: General: healthy appearing and no acute distress Nutritional Appearance: well nourished Orientation/consciousness: patient oriented x3 Limitations: no limitations Neck: Neck: normal visual inspection Chest: Chest palpation & inspection: normal inspection of the chest Resp: Effort & Inspection: normal respiratory effort Auscultation: clear to auscultation bilaterally Cardio: Rate: regular rate Rhythm: regular rhythm GI: GI Palp: Yes Soft to palpation and No Tenderness to palpation present (GI) Auscultation: normal bowel sounds Skin: General skin exam: normal color Rashes: no rashes Wounds: no wounds Neuro: General: patient oriented x3, moves all extremities, no meningeal signs and no focal motor deficits Speech: normal speech Extrem: General: normal to inspection and no clubbing, cyanosis or edema Psych: Mental Status: mental status grossly normal Affect: normal affect Attitude: cooperative Course Vital Signs Vital signs: Vital Signs Temperature 98.0 F 11/22/24 17:34 Pulse Rate 96 11/22/24 17:34 Respiratory Rate 18 11/22/24 17:34 Blood Pressure 142/74 H 11/22/24 17:34 Pulse Oximetry 100 11/22/24 17:34 Temperature 98.0 F 11/22/24 17:34 Pulse Rate 96 11/22/24 17:34 Respiratory Rate 18 11/22/24 17:34 Blood Pressure 142/74 H 11/22/24 17:34 Pulse Oximetry 100 11/22/24 17:34 MDM - Chest Pain MDM Narrative Medical decision making narrative: Pt presents with chest tightness constant since last night. cardiac work up ordered. ekg non specific st changes (inversion lead III) trop neg, labs normal cxr napd. likely musular. home on naprosyn and methocarbamol Lab Data 11/22/24 17:33 11/22/24 17:33 Labs: Lab Results 11/22/24 11/22/24 Range/Units 17:33 20:48 WBC 7.0 (4.5-10.0) K/mm3 RBC 4.87 (4.2-5.4) M/mm3 Hgb 13.9 (12.0-15.0) g/dL Hct 41.7 (37.0-47.0) % MCV 85.6 (80-100) fl MCH 28.5 (26-34) pg MCHC 33.3 (32-36) g/dl RDW 12.1 (11.5-14.5) % Plt Count 257 (150-375) k/mm3 MPV 9.4 (7.4-10.4) fl Immature Gran % (Auto) 0.3 (0-0.5) % Neut % (Auto) 62.1 (45.5-73.1) % Lymph % (Auto) 29.5 (18.3-44.2) % [place] % (Auto) 7.1 (2.6-8.5) % Eos % (Auto) 0.7 (0-4.4) % Baso % (Auto) 0.3 (0.2-1.2) % Lymph # (Auto) 2.07 (0.9-3.2) K/mm3 [place] # (Auto) 0.5 (0.1-0.6) K/mm3 Eos # (Auto) 0.1 (0-0.3) K/mm3 Baso # (Auto) 0.0 (0.0-0.1) K/mm3 Abs Immat Gran (auto) 0.02 (0.00-0.031) K/mm3 Absolute Neuts (auto) 4.4 (1.3-6.7) K/mm3 Absolute Nucleated RBC 0.000 (0.0-0.012) K/mm3 Nucleated RBC % 0.0 (0.0-0.2) % PT 13.8 (11.1-14.7) Seconds INR 1.0 APTT 28.9 (22.3-36.8) Seconds Sodium 140 (137-145) mmol/L Potassium 3.6 (3.4-5.0) mmol/L Chloride 105 (98-107) mmol/L Carbon Dioxide 26 (22-30) mmol/L Anion Gap 9 (4-12) mmol/L BUN 22 H (7-17) mg/dL Creatinine 0.62 L (0.7-1.0) mg/dL Estim Creat Clear Calc 94 ml/min Estimated GFR > 60 (59 - ) Glucose 118 H (65-110) mg/dL Calcium 9.1 (8.4-10.2) mg/dL Total Bilirubin 1.2 (0.2-1.3) mg/dL AST 26 (14-36) U/L ALT 17 (6-35) U/L Alkaline Phosphatase 60 (38-126) U/L Troponin I < 0.012 Pending (0.000-0.034) ng/mL Total Protein 8.2 (6.3-8.2) g/dL Albumin 4.7 (3.5-5.1) g/dL Lipase 104 (23-300) U/L Discharge Plan Discharge Clinical Impression: Atypical chest pain Patient Disposition: Home Condition: Stable Instructions: Antibiotic Form, Chest Wall Pain (ED) Patient Language: Polish Prescriptions: New naproxen [Naprosyn] 500 mg tablet 500 mg PO BID Qty: 20 0RF methocarbamol 500 mg tablet 500 mg PO TID Qty: 30 0RF Follow-up/Referrals: Radha Cheek APRN [Primary Care Provider] - Quality HEART score for chest pain patients History: slightly suspicious ECG: non specific repolarization disturbance/LBTB/PM Age: < or = to 45 years Risk factors: no risk factors known Troponin: < or = to 1x normal limit Heart score: 1
[2024-11-22 21:17] LABS: Troponin I < 0.012 ng/mL (0.000-0.034)
--- OUTSIDE RECORDS SUMMARY | 2024-11-22 21:24 | XMS_ITS | Clinical Summary ---
Author Organization [facility] y Address [address] [place] [address] Care Team Providers Care Civil Project Engineer Name Role Phone Unavailable Primary Care Provider [...] Comments Blood Pressure 110/68 06/29/2023 5:00 PM LIBRARY PARAPROFESSIONAL Pulse 85 06/29/2023 5:00 PM LIBRARY PARAPROFESSIONAL Temperature 36.9 C (98.5 F) 06/29/2023 5:00 PM LIBRARY PARAPROFESSIONAL Respiratory Rate 16 06/29/2023 5:00 PM LIBRARY PARAPROFESSIONAL Oxygen Saturation 99% 06/29/2023 5:00 PM LIBRARY PARAPROFESSIONAL Inhaled Oxygen Concentration - - Weight 74.8 kg (165 lb) 06/29/2023 3:16 PM LIBRARY PARAPROFESSIONAL Height 167.6 cm (5' 6) 06/09/2014 9:40 AM LIBRARY PARAPROFESSIONAL Body Mass Index 26.63 06/09/2014 9:40 AM LIBRARY PARAPROFESSIONAL Plan of Treatment Health Maintenance Due Date [...] patient's age to complete this topic Insurance [facility] Advance Directives For more information, please contact: [phone] * Full Code (Latest Code Status on File) Date Activated Date Inactivated Comments 03/15/2014 7:16 AM 03/17/2014 12:44 PM
--- OUTSIDE RECORDS SUMMARY | 2024-11-22 21:24 | XMS_ITS | Clinical Summary ---
Author Organization [facility] [address] Address [address] [place] [id number] Care Team Providers Care Professor Of Finance Name Role Phone Brea Lechuga SENIOR CLINICAL DATA ANALYST Primary Care Provider [phone] Allergies Active Allergy Reactions Criticality Noted Date [...] Department Care Team Description 11/22/2024 Nurse Triage [facility] Primary Care at [address] [address] Brea Lechuga NP 09/03/2024 8:45 AM CDT Office Visit [facility] at [address] [address] Alice Ramirez PA Perforation of [...] Read Routine (OP Routine) 07/01/2024 1:05 PM MANAGER STRATEGIC PARTNERSHIPS Breast cancer screening by mammogram HEPATITIS C ANTIBODY Routine 03/10/2024 9:58 AM CDT Encounter for hepatitis C screening test for low risk patient from Last 3 Months or Most Recently Relevant to Health Maintenance Results * SCREENING MAMMOGRAM BILATERAL W SINGH (07/01/2024 1:05 PM MANAGER STRATEGIC PARTNERSHIPS) Anatomical Region Laterality Modality Breast Bilateral Mammography Impressions 07/01/2024 1:13 PM MANAGER STRATEGIC PARTNERSHIPS BI-RADS ATLAS category (overall): 1 - Negative There is no mammographic evidence of malignancy. A 1 year screening mammogram is recommended. The patient has been or will be contacted. We recommend annual screening mammography for women at average risk of breast cancer beginning at age 40, based on guidelines of the [place] [employer] (ACR Practice Parameter for the Performance of Screening and Diagnostic Mammography) and [place] [employer]. For women with and elevated risk of breast cancer, please refer to the ACR Practice Parameter for specific screening recommendations. The patient will be entered into a reminder system with a target due date of 1 year for her next screening exam. Narrative 07/01/2024 1:13 PM MANAGER STRATEGIC PARTNERSHIPS SCREENING MAMMOGRAM BILATERAL W SINGH: 07/01/24 The [...] Final Result Performing Organization Address City/State/ZIP [place] Phone Number [facility] [phone] Department [place] [address] from Last 3 Months or Most Recently Relevant to Health Maintenance Insurance CIG CIG CIGNA Care Teams Professor Of Finance Relationship Specialty Start Date End Date Brea Lechuga NP [address] [facility] [address] [place] [address] PCP - General Family Medicine 03/10/24
--- OUTSIDE RECORDS SUMMARY | 2024-11-22 21:24 | XMS_ITS | Encounter Summary ---
Author Organization [facility] Address [address] [place] [id number] Care Team Providers Care Broiler Supervisor Name Role Phone Brea Lechuga NP Primary Care Provider [phone] Reason for Visit * Reason Onset Date Comments Chest Pain 11/19/2024 Encounter Details Date Type Department Care Team (Late st Contact Info) Description 11/22/2024 Nurse Triage [facility] Primary Care at [address] [address] Brea Lechgua NP [address] [place] [address] [address] [place] [address] Social History Tobacco Use Types [...] not seen the response from Charley through [employer]. She was read Charley's response verbatim and [...] today. No availability. Please contact pt at [phone]. Care advice given including increased fluids and dietary management. Pt verbalized understanding and will adriel with worsening sx's. Disposition See Today in Office Reason for Disposition Patient wants to be seen Protocols Used Chest Fson-[id number]-FT * Telephone Encounter - Charley Ritter RN - 11/22/2024 12:03 PM CDT Regarding: worsening tightness in chest ----- Message from [place] R sent at 11/22/2024 11:54 AM CDT [...] on filedocumented in this encounter Care Teams Broiler Supervisor Relationship Specialty Start Date End Date Brea Lechuga NP [address] [facility] [address] [place] [address] PCP - General Family Medicine 03/10/24 documented as of this encounter
--- OUTSIDE RECORDS SUMMARY | 2024-11-22 21:24 | XMS_ITS | Referral Summary ---
Author Organization [address] Address [address] [place] [id number] Care Team Providers Care Microwave Radio Technician Name Role Phone Brea Lechuga NP Primary Care Provider [phone] Encounters Date Type Department Care Team Description 11/22/2024 Nurse Triage [facility] Primary Care at [address] [phone] Brea Lechuga NP 09/03/2024 8:45 AM CDT Office Visit [facility] at [address] [phone] Alice Ramirez PA Perforation of [...] Read Routine (OP Routine) 07/01/2024 1:05 PM DIESEL POWERPLANT MECHANIC HELPER Breast cancer screening by mammogram HEPATITIS C ANTIBODY Routine 03/10/2024 9:58 AM CDT Encounter for hepatitis C screening test for low risk patient from Last 3 Months or Most Recently Relevant to Health Maintenance Results * SCREENING MAMMOGRAM BILATERAL W SINGH (07/01/2024 1:05 PM DIESEL POWERPLANT MECHANIC HELPER) Anatomical Region Laterality Modality Breast Bilateral Mammography Impressions 07/01/2024 1:13 PM DIESEL POWERPLANT MECHANIC HELPER BI-RADS ATLAS category (overall): 1 - Negative There is no mammographic evidence of malignancy. A 1 year screening mammogram is recommended. The patient has been or will be contacted. We recommend annual screening mammography for women at average risk of breast cancer beginning at age 40, based on guidelines of the [employer] (ACR Practice Parameter for the Performance of Screening and Diagnostic Mammography) and [employer]. For women with and elevated risk of breast cancer, please refer to the ACR Practice Parameter for specific screening recommendations. The patient will be entered into a reminder system with a target due date of 1 year for her next screening exam. Narrative 07/01/2024 1:13 PM DIESEL POWERPLANT MECHANIC HELPER SCREENING MAMMOGRAM BILATERAL W SINGH: 07/01/24 The [...] Final Result Performing Organization Address City/State/ZIP [place] Phone Number [facility] [phone] [address] [facility] [place] [address] from Last 3 Months or Most Recently Relevant to Health Maintenance Insurance CIGNA CIGNA CIGNA Care Teams Microwave Radio Technician Relationship Specialty Start Date End Date Brea Lechuga NP [address] [place] [address] PCP - General Family Medicine 03/10/24
[2024-11-22 21:40] VITALS: BP 119/80; PULSE 82; RESP 18; TEMP 36.7; O2SAT 100
== END 2024-11-22 21:55 | disposition home or self-care (01) ==
LOC: ANHED 21:23
PROVIDERS: Emergency Provider Emergency Medicine; PCP Nurse Practitioner Adult Health
DX: R07.89 Other chest pain (principal); R94.31 Abnormal electrocardiogram [ECG] [EKG]
CPT/HCPCS: 36415; 71046; 80053; 83690; 84484; 85025; 85610; 85730; 93005; 99284